=== PATIENT | male | born 1975 | race American Indian/Alaskan Native ===

== ENCOUNTER 2016-10-23 13:10 | Emergency (ER) | payer MEDICAID ==
[2016-10-23 13:32] VITALS: BP 154/87
--- NOTE | 2016-10-23 14:02 | EDM.PDOC ---
[id number]: BACK PAIN Time Seen by Provider: 10/23/16 13:35 Source of Information: Reports: Patient History Limitations: Reports: No Limitations - History of Present Illness INITIAL COMMENTS - FREE TEXT/NARRATIVE: 41-year-old male with chronic low back pain was lifting boxes this morning at 8: 00 and felt a pull in his lower back and now has increased pain. He has chronic sciatic-like discomfort in his left leg which is unchanged. No incontinence. Onset: Sudden Duration: Hour(s): (5 hours ago) Location: Reports: Back Severity: Moderate Lower Back Pain Score (Numeric/FACES): 8 - Related Data Allergies Allergy/AdvReac Type Severity Reaction Status Date / Time No Known Allergies Allergy Verified 10/23/16 13:30 Home Meds: Home Meds Acetaminophen [Tylenol Extra Strength] 500 mg PO ASDIRECTED 10/23/16 [History] Amitriptyline HCl [Amitriptyline HCl] 10 mg PO DAILY 10/23/16 [History] Escitalopram [Lexapro] 15 mg PO DAILY 10/23/16 [History] Gabapentin [Gabapentin] 1 tab PO QID 10/23/16 [History] Past Medical History Cardiovascular History: Reports: Heart Murmur, Hypertension Gastrointestinal History: Reports: Cholelithiasis Musculoskeletal History: Reports: Other (See Below) Other Musculoskeletal History: Degenerative disc disease Psychiatric History: Reports: Anxiety, Depression - Infectious Disease History Infectious Disease History: Reports: Chicken Pox - Past Surgical History GI Surgical History: Reports: Cholecystectomy Social & Family History - Tobacco Use Smoking Status *Q: Current Every Day Smoker Years of Tobacco use: 33 Packs/Tins Daily: 0.5 - Caffeine Use Caffeine Use: Reports: Coffee - Recreational Drug Use Recreational Drug Use: No ED ROS GENERAL - Review of Systems Review Of Systems: See Below Constitutional: Denies: Fever, Chills Respiratory: Denies: Shortness of Breath Cardiovascular: Denies: Chest Pain GI/Abdominal: Denies: Abdominal Pain, Nausea, Vomiting : Denies: Incontinence Skin: Reports: No Symptoms Neurological: Reports: Difficulty Walking (Some pain with walking). Denies: Paresthesia ED EXAM,LOWER BACK PAIN/INJURY - Physical Exam Exam: See Below Exam Limited By: No Limitations General Appearance: Alert, No Apparent Distress (Appears to be moving fairly well) Respiratory/Chest: No Respiratory Distress Cardiovascular: Regular Rate, Rhythm Back Exam: Paraspinal Tenderness (Patient has paraspinous tenderness and muscle tightness over the lower LS-spine bilaterally). No: CVA Tenderness (R), CVA Tenderness (L) Neurological: No Motor/Sensory Deficits Course - Vital Signs Last Recorded V/S: Last Vital Signs Temp 96.6 F 10/23/16 13:33 Pulse 93 10/23/16 13:33 Resp 16 10/23/16 13:33 BP 154/87 H 10/23/16 13:33 Pulse Ox 95 10/23/16 13:33 - Re-Assessments/Exams Free Text/Narrative Re-Assessment/Exam: 10/23/16 14:00 Patient will be provided with some Naprosyn he can take 500 mg twice daily, some Flexeril he can take up to 3 times daily and also 50 mg of prednisone daily for the next 4-6 days. He was encouraged to do some gentle stretching, stay active, and followup with Dr. Mcmahon if he is not improving satisfactorily. Departure - Departure Time of Disposition: 14:12 Disposition: Home, Self-Care 01 Condition: good Clinical Impression: Acute exacerbation of chronic low back pain - Discharge Information Instructions: Back Pain, Adult, [id number] Referrals: Rafat Mcmahon Sr, MD [Primary Care Provider] - Forms: ED Department Discharge Care Plan Goals: Take naproxen twice daily, use muscle relaxers up to 3 times daily and take 5 pills of prednisone with food each day for at least 3 days and up to [address] Mcmahon if not improving satisfactorily after 3-4 days. Increase activity as tolerated, gentle stretching may help.
== END 2016-10-23 14:12 | disposition home or self-care (01) ==
LOC: JP.ED 13:10 → EEVIPCON 13:10 → JP.ED 14:12
DX: M54.5 Low back pain (principal); G89.29 Other chronic pain; F41.9 Anxiety disorder, unspecified; F32.9 Major depressive disorder, single episode, unspecified; F17.210 Nicotine dependence, cigarettes, uncomplicated; Z79.899 Other long term (current) drug therapy; Z90.49 Acquired absence of other specified parts of digestive tract; X50.0XXA Overexertion from strenuous movement or load, initial encounter
CPT/HCPCS: 99283

== ENCOUNTER 2017-01-08 06:02 | Day surgery (SDC) | payer MEDICAID ==
[2017-01-08] MEDS ORDERED: Dextrose 5%-Lactated Ringers 1,000 ML IV SCH (06:30)
[2017-01-08] MEDS ORDERED: Lidocaine 1% with EPINEPHrine 1:100,000 50 ML MDV ONE (07:00)
[2017-01-08] MEDS ORDERED: Bupivacaine 0.5% 50 ML MDV ONE (07:00)
[2017-01-08] MEDS ORDERED: Propofol 200 MG/20 ML SDV ONE (07:15)
[2017-01-08] MEDS ORDERED: fentaNYL 100 MCG/2 ML SDV ONE (07:15)
[2017-01-08] MEDS ORDERED: ceFAZolin 2 GM in Sodium Chloride 0.9% 50 ML IV ONE (07:15)
[2017-01-08] MEDS ORDERED: Midazolam 1 MG/ML 2 ML SDV ONE (07:15)
[2017-01-08 09:43] VITALS: BP 141/87
--- NOTE | 2017-01-14 13:18 | OR ---
DATE OF PROCEDURE: 01/08/2017 PREOPERATIVE DIAGNOSIS: Probable encapsulated seroma of right anabaptist. POSTOPERATIVE DIAGNOSES: 1. Subfascial lipoma, right anabaptist. 2. Right temporal artery coursing over mass requiring its division and ligation. OPERATIVE PROCEDURES: 1. Excision of subfascial lipoma of right anabaptist (06453). 2. Division and ligation of right temporal artery (60603). ANESTHESIA: Local plus IV sedation. INDICATION FOR PROCEDURE: This is a 41-year-old male who recently had some trauma to the right forehead and anabaptist area, and felt roughly a 2.5-cm fluctuant lesion in the right anabaptist area. This was felt by ultrasound to likely be fluid, but it would at this point be encapsulated. Given this, the plan was to proceed with excision of that encapsulated tissue. Potential risks including bleeding and infection were reviewed, and the patient wishes to proceed. DETAILS OF PROCEDURE: The patient was taken to the operating room and placed in a supine position with the head turned slightly toward the left. The right anabaptist and surrounding areas were then prepped and draped, and anesthetized with 1% lidocaine mixed with Marcaine. In the lines of the skin creases, a linear incision was made and carried down through the skin and subcutaneous tissue and through the fascia of the temporal muscle at that area. During the course of the dissection, the temporal artery was encountered, and this was more or less laying directly over the course of the lesion. Given this, the temporal artery was divided and ligated to allow continued dissection onto the area of the mass effect. Over the muscular fascia and more or less the subgaleal level, a 2.5 cm lipoma was encountered as opposed to any fluid. This lipoma was well defined and was removed in its entirety using a combination of blunt and cautery dissection. Specimen was then delivered from the field. At that point, the fascia was approximated with some 4-0 Vicryl stitch, and the skin with a 4-0 Vicryl subcuticular stitch. Dressing was applied. The patient was taken to the recovery room in a satisfactory condition. There were no evident complications. Manoj Akins MD /[id number]
== END 2017-01-08 09:30 | disposition home or self-care (01) ==
LOC: JP.SDS 06:02
PROVIDERS: ATTEND Surgery
DX: D17.0 Benign lipomatous neoplasm of skin and subcutaneous tissue of head, face and neck (principal)
CPT/HCPCS: 21014; 37609; 88304; J0690; J2250; J2704; J3010; J7042; J7050

== ENCOUNTER 2017-05-26 10:55 | Emergency (ER) | payer MEDICAID ==
[2017-05-26 11:05] VITALS: BP 134/85
[2017-05-26] MEDS ORDERED: LORazepam 2 MG/ML SDV IM ONE (11:10)
--- NOTE | 2017-05-26 11:23 | EDM.PDOCBH ---
ED HPI GENERAL MEDICAL PROBLEM - General Chief Complaint: Behavioral/Psych Stated Complaint: MEDICAL [facility] Time Seen by Provider: 05/26/17 11:00 Source of Information: Reports: Patient, EMS History Limitations: Reports: Altered Mental Status, Intoxication (Actively using methamphetamine) - History of Present Illness INITIAL COMMENTS - FREE TEXT/NARRATIVE: 41-year-old male brought in by ambulance because of acute agitation, feels like he is going to because his heart is beating so hard. He's been actively doing methamphetamine for the past several days. Not suicidal. He is asking for something to calm him down, he was prescribed amphetamine as well as benzodiazepines in the past month but he said his "takes his medications". Onset: Unknown/Unsure Severity: Moderate Associated Symptoms: Reports: Confusion. Denies: Nausea/Vomiting, Shortness of Breath - Related Data Allergies Allergy/AdvReac Type Severity Reaction Status Date / Time No Known Allergies Allergy Verified 01/08/17 06:14 Home Meds: Home Meds Amitriptyline HCl [Amitriptyline HCl] 25 mg PO BEDTIME 10/23/16 [History] Escitalopram [Lexapro] 20 mg PO DAILY 10/23/16 [History] Gabapentin [Gabapentin] 800 mg PO QID 10/23/16 [History] Ibuprofen [Motrin] 600 mg PO DAILY 01/04/17 [History] ALPRAZolam [ALPRAZolam] 05/26/17 [History] Amphetamine/Dextroamphetamine [Adderall] 05/26/17 [History] Mirtazapine [Mirtazapine] 05/26/17 [History] buPROPion HCl [Wellbutrin Xl] 05/26/17 [History] Past Medical History HEENT History: Reports: None Cardiovascular History: Reports: Heart Murmur, Hypertension Respiratory History: Reports: None Gastrointestinal History: Reports: Cholelithiasis Genitourinary History: Reports: None Musculoskeletal History: Reports: Arthritis, Back Pain, Chronic, Osteoarthritis , Other (See Below) Other Musculoskeletal History: Degenerative disc disease Neurological History: Reports: Concussion, Migraines, Speech Problems Psychiatric History: Reports: Anxiety, Depression Endocrine/Metabolic History: Reports: Obesity/BMI 30+ Hematologic History: Reports: None Oncologic (Cancer) History: Reports: None Dermatologic History: Reports: None - Infectious Disease History Infectious Disease History: Reports: Chicken Pox - Past Surgical History Head Surgeries/Procedures: Reports: None HEENT Surgical History: Reports: None Cardiovascular Surgical History: Reports: None Respiratory Surgical History: Reports: None GI Surgical History: Reports: Cholecystectomy Endocrine Surgical History: Reports: None Neurological Surgical History: Reports: None Musculoskeletal Surgical History: Reports: None, Arthroscopic Knee Other Musculoskeletal Surgeries/Procedures:: bilateral knee scope Oncologic Surgical History: Reports: None Dermatological Surgical History: Reports: None Social & Family History - Family History Family Medical History: Noncontributory - Tobacco Use Smoking Status *Q: Current Every Day Smoker Years of Tobacco use: 33 Packs/Tins Daily: 0.5 Used Tobacco, but Quit: No Second Hand Smoke Exposure: Yes - Caffeine Use Caffeine Use: Reports: Coffee, Soda - Recreational Drug Use Recreational Drug Use: No ED ROS GENERAL - Review of Systems Review Of Systems: See Below Constitutional: Denies: Fever Respiratory: Denies: Shortness of Breath Cardiovascular: Reports: Palpitations. Denies: Chest Pain GI/Abdominal: Denies: Nausea, Vomiting Psychiatric: Reports: Anxiety, Mood Lability ED EXAM, BEHAVIORAL HEALTH - Physical Exam Exam: See Below Exam Limited By: Intoxication General Appearance: Alert, Anxious, Mild Distress Eye Exam: Bilateral Eye: EOMI Respiratory/Chest: No Respiratory Distress Cardiovascular: Regular Rate, Rhythm. No: Tachycardia GI/Abdominal: Non-Tender Neurological: Alert, Oriented x 3 (Patient is oriented and answering questions appropriately but very agitated and anxious) COURSE, BEHAVIORAL HEALTH COMP - Course Vital Signs: Last Vital Signs Temp 99.6 F 05/26/17 11:25 Pulse 79 05/26/17 11:25 Resp 22 H 05/26/17 11:25 BP 134/85 05/26/17 11:25 Pulse Ox 98 05/26/17 11:25 Orders, Labs, Meds: Medications Discontinued Medications Generic Name Dose Route Start Last Admin Trade Name Freq PRN Reason Stop Dose Admin Lorazepam 1 mg 05/26/17 11:10 05/26/17 11:17 Ativan IM 05/26/17 11:11 1 mg ONETIME ONE Administration Re-Assessment/Re-Exam: Discussed with the patient the inappropriateness of not only using methamphetamine but allowing his significant other to take his medications. He was given 1 mg of Ativan IM. Departure - Departure Time of Disposition: 13:37 Disposition: Home, Self-Care 01 Condition: Fair Clinical Impression: Methamphetamine abuse - Discharge Information Instructions: Stimulant Use Disorder-Methamphetamines Referrals: PCP,None [Primary Care Provider] - Forms: ED Department Discharge Care Plan Goals: Take your medications only as prescribed and avoid methamphetamine abuse in the future.
== END 2017-05-26 12:37 | disposition home or self-care (01) ==
LOC: JP.ED 10:55
DX: F15.129 Other stimulant abuse with intoxication, unspecified (principal); F32.9 Major depressive disorder, single episode, unspecified; F17.210 Nicotine dependence, cigarettes, uncomplicated; I10 Essential (primary) hypertension; Z79.899 Other long term (current) drug therapy; Z79.1 Long term (current) use of non-steroidal anti-inflammatories (NSAID)
CPT/HCPCS: 80305; 96372; 99285; J2060

== ENCOUNTER 2017-05-26 15:00 | Emergency (ER) | payer MEDICAID ==
[2017-05-26 15:23] VITALS: BP 121/85
--- NOTE | 2017-05-26 17:24 | EDM.PDOCBH ---
ED HPI GENERAL MEDICAL PROBLEM - General Chief Complaint: Behavioral/Psych Stated Complaint: EVAL Time Seen by Provider: 05/26/17 15:20 Source of Information: Reports: Patient, Police History Limitations: Reports: Altered Mental Status, Intoxication - History of Present Illness INITIAL COMMENTS - FREE TEXT/NARRATIVE: 41-year-old male who was discharged earlier today with acute methamphetamine toxicity is still displaying behavior that is dangerous, refusing to go home and walking down the street in the 25 below wind chill. Police were unable to calm him down so they brought him back in. He seems to be very focused on his 's drug use and abuse, and is having problems maintaining a coherent train of thought. - Related Data Allergies Allergy/AdvReac Type Severity Reaction Status Date / Time No Known Allergies Allergy Verified 01/08/17 06:14 Home Meds: Home Meds Amitriptyline HCl [Amitriptyline HCl] 25 mg PO BEDTIME 10/23/16 [History] Escitalopram [Lexapro] 20 mg PO DAILY 10/23/16 [History] Gabapentin [Gabapentin] 800 mg PO QID 10/23/16 [History] Ibuprofen [Motrin] 600 mg PO DAILY 01/04/17 [History] ALPRAZolam [ALPRAZolam] 05/26/17 [History] Amphetamine/Dextroamphetamine [Adderall] 05/26/17 [History] Mirtazapine [Mirtazapine] 05/26/17 [History] buPROPion HCl [Wellbutrin Xl] 05/26/17 [History] Past Medical History HEENT History: Reports: None Cardiovascular History: Reports: Heart Murmur, Hypertension Respiratory History: Reports: None Gastrointestinal History: Reports: Cholelithiasis Genitourinary History: Reports: None Musculoskeletal History: Reports: Arthritis, Back Pain, Chronic, Osteoarthritis , Other (See Below) Other Musculoskeletal History: Degenerative disc disease Neurological History: Reports: Concussion, Migraines, Speech Problems Psychiatric History: Reports: Anxiety, Depression Endocrine/Metabolic History: Reports: Obesity/BMI 30+ Hematologic History: Reports: None Oncologic (Cancer) History: Reports: None Dermatologic History: Reports: None - Infectious Disease History Infectious Disease History: Reports: Chicken Pox - Past Surgical History Head Surgeries/Procedures: Reports: None HEENT Surgical History: Reports: None Cardiovascular Surgical History: Reports: None Respiratory Surgical History: Reports: None GI Surgical History: Reports: Cholecystectomy Endocrine Surgical History: Reports: None Neurological Surgical History: Reports: None Musculoskeletal Surgical History: Reports: None, Arthroscopic Knee Other Musculoskeletal Surgeries/Procedures:: bilateral knee scope Oncologic Surgical History: Reports: None Dermatological Surgical History: Reports: None Social & Family History - Family History Family Medical History: Noncontributory - Tobacco Use Smoking Status *Q: Current Every Day Smoker Years of Tobacco use: 30 Packs/Tins Daily: 0.5 Used Tobacco, but Quit: No Second Hand Smoke Exposure: Yes - Caffeine Use Caffeine Use: Reports: Coffee, Soda - Recreational Drug Use Recreational Drug Use: No Drug Use in Last 12 Months: Yes Recreational Drug Type: Reports: Methamphetamine Recreational Drug Use Frequency: Binges ED ROS GENERAL - Review of Systems Review Of Systems: See Below Constitutional: Denies: Fever Respiratory: Denies: Shortness of Breath GI/Abdominal: Denies: Nausea, Vomiting Skin: Reports: No Symptoms Neurological: Denies: Headache ED EXAM, BEHAVIORAL HEALTH - Physical Exam Exam: See Below Exam Limited By: Intoxication General Appearance: Alert, Anxious Respiratory/Chest: No Respiratory Distress Cardiovascular: Regular Rate, Rhythm Neurological: Alert Psychiatric: Restless COURSE, BEHAVIORAL HEALTH COMP - Course Vital Signs: Last Vital Signs Temp 99.1 F 05/26/17 15:18 Pulse 112 H 05/26/17 15:18 Resp 16 05/26/17 15:18 BP 121/85 05/26/17 15:18 Pulse Ox 99 05/26/17 15:18 Orders, Labs, Meds: Laboratory Tests 05/26/17 Range/Units 16:59 Urine Opiates Screen Negative (NEGATIVE) Ur Oxycodone Screen Negative (NEGATIVE) Urine Methadone Screen Negative (NEGATIVE) Ur Propoxyphene Screen Negative (NEGATIVE) Ur Barbiturates Screen Negative (NEGATIVE) Ur Tricyclics Screen Negative (NEGATIVE) Ur Phencyclidine Scrn Negative (NEGATIVE) Ur Amphetamine Screen Positive H (NEGATIVE) U Methamphetamines Scrn Positive H (NEGATIVE) Urine MDMA Screen Positive H (NEGATIVE) U Benzodiazepines Scrn Positive H (NEGATIVE) U Cocaine Metab Screen Negative (NEGATIVE) U Marijuana (THC) Screen Negative (NEGATIVE) Re-Assessment/Re-Exam: A urine drug screen was obtained and is positive for methamphetamine. Patient will be observed until he detoxifies. Over the course of 2 hours the patient improved to the point where he could be taken home by police. His however was going to somewhere else safe until she was comfortable returning home. Departure - Departure Time of Disposition: 18:49 Disposition: Home, Self-Care 01 Condition: Fair Clinical Impression: Methamphetamine abuse - Discharge Information Instructions: Stimulant Use Disorder-Methamphetamines Referrals: PCP,None [Primary Care Provider] - Forms: ED Department Discharge Care Plan Goals: Resuming your regular medications as prescribed. Avoid abusing methamphetamine in the future.
== END 2017-05-26 18:49 | disposition home or self-care (01) ==
LOC: JP.ED 15:00
DX: F15.129 Other stimulant abuse with intoxication, unspecified (principal); I10 Essential (primary) hypertension; F32.9 Major depressive disorder, single episode, unspecified; Z79.1 Long term (current) use of non-steroidal anti-inflammatories (NSAID); Z79.899 Other long term (current) drug therapy; F17.210 Nicotine dependence, cigarettes, uncomplicated
CPT/HCPCS: 80305; 99285

== ENCOUNTER 2017-06-29 21:05 | Emergency (ER) | payer MEDICAID ==
[2017-06-29 21:37] VITALS: BP 122/89
[2017-06-29] MEDS ORDERED: Ibuprofen 600 MG Tab PO ONE (21:45)
--- NOTE | 2017-06-29 23:24 | EDM.PDOCBH ---
ED HPI GENERAL MEDICAL PROBLEM - General Chief Complaint: Drug or Alcohol Abuse Time Seen by Provider: 06/29/17 21:30 Source of Information: Reports: Patient, Police History Limitations: Reports: Altered Mental Status, Intoxication - History of Present Illness INITIAL COMMENTS - FREE TEXT/NARRATIVE: 41-year-old male, known methamphetamine abuser was walking down the street tonight when the police shined a light on him and asked what he was doing, he took off running. They pursued him and apprehended him and he was very agitated , fighting the police so they put him in the back seat of the car. He continued to be moderately violent kicking and hitting so they brought him in for sedation. About the time they got to the emergency room he calmed down and started to communicate fairly normally. His chief complaint was right foot pain. He also admits to using alcohol and methamphetamine today. He does not have any criminal charges against him. Onset: Unknown/Unsure Associated Symptoms: Reports: Confusion. Denies: Nausea/Vomiting, Shortness of Breath - Related Data Allergies Allergy/AdvReac Type Severity Reaction Status Date / Time No Known Allergies Allergy Verified 01/08/17 06:14 Home Meds: Home Meds Amitriptyline HCl [Amitriptyline HCl] 25 mg PO BEDTIME 10/23/16 [History] Escitalopram [Lexapro] 20 mg PO DAILY 10/23/16 [History] Gabapentin [Gabapentin] 800 mg PO QID 10/23/16 [History] Ibuprofen [Motrin] 600 mg PO DAILY 01/04/17 [History] ALPRAZolam [ALPRAZolam] 05/26/17 [History] Amphetamine/Dextroamphetamine [Adderall] 05/26/17 [History] Mirtazapine [Mirtazapine] 05/26/17 [History] buPROPion HCl [Wellbutrin Xl] 05/26/17 [History] Past Medical History HEENT History: Reports: None Cardiovascular History: Reports: Heart Murmur, Hypertension Respiratory History: Reports: None Gastrointestinal History: Reports: Cholelithiasis Genitourinary History: Reports: None Musculoskeletal History: Reports: Arthritis, Back Pain, Chronic, Osteoarthritis , Other (See Below) Other Musculoskeletal History: Degenerative disc disease Neurological History: Reports: Concussion, Migraines, Speech Problems Psychiatric History: Reports: Anxiety, Depression Endocrine/Metabolic History: Reports: Obesity/BMI 30+ Hematologic History: Reports: None Oncologic (Cancer) History: Reports: None Dermatologic History: Reports: None - Infectious Disease History Infectious Disease History: Reports: Chicken Pox - Past Surgical History Head Surgeries/Procedures: Reports: None HEENT Surgical History: Reports: None Cardiovascular Surgical History: Reports: None Respiratory Surgical History: Reports: None GI Surgical History: Reports: Cholecystectomy Endocrine Surgical History: Reports: None Neurological Surgical History: Reports: None Musculoskeletal Surgical History: Reports: None, Arthroscopic Knee Other Musculoskeletal Surgeries/Procedures:: bilateral knee scope Oncologic Surgical History: Reports: None Dermatological Surgical History: Reports: None Social & Family History - Family History Family Medical History: Noncontributory - Tobacco Use Smoking Status *Q: Unknown Ever Smoked Years of Tobacco use: 30 Packs/Tins Daily: 0.5 Used Tobacco, but Quit: No Second Hand Smoke Exposure: Yes - Caffeine Use Caffeine Use: Reports: Coffee, Soda - Recreational Drug Use Recreational Drug Use: Yes Drug Use in Last 12 Months: Yes Recreational Drug Type: Reports: Methamphetamine Recreational Drug Use Frequency: Binges ED ROS GENERAL - Review of Systems Review Of Systems: ROS reveals no pertinent complaints other than HPI. ED EXAM, BEHAVIORAL HEALTH - Physical Exam Exam: See Below Exam Limited By: Intoxication General Appearance: Alert, No Apparent Distress Eye Exam: Bilateral Eye: EOMI Respiratory/Chest: No Respiratory Distress, Lungs Clear Cardiovascular: Regular Rate, Rhythm Extremities: Other (Despite the right foot pain, there was no physical evidence of injury such as swelling, bruising or deformity. He reacted to intense tenderness to palpation of the top of the foot) Neurological: Alert COURSE, BEHAVIORAL HEALTH COMP - Course Vital Signs: Last Vital Signs Temp 99.5 F 06/29/17 21:30 Pulse 91 06/29/17 21:30 Resp 15 06/29/17 21:30 BP 122/89 06/29/17 21:30 Pulse Ox 99 06/29/17 21:30 Orders, Labs, Meds: Active Orders 24 hr Category Date Time Status Foot 2V Rt [CR] Stat Exams 06/29/17 21:28 Taken Foot wo Cont Rt [CT] Stat Exams 06/29/17 22:15 Taken Laboratory Tests 06/29/17 Range/Units 21:28 Ethyl Alcohol 32 mg/dL Medications Discontinued Medications Generic Name Dose Route Start Last Admin Trade Name Freq PRN Reason Stop Dose Admin Ibuprofen 600 mg 06/29/17 21:45 06/29/17 21:52 Motrin PO 06/29/17 21:46 600 mg ONETIME ONE Administration Re-Assessment/Re-Exam: Patient was given 600 mg of ibuprofen, a foot x-ray was done which looked normal. We then placed an Marcial wrap on the foot which she took off because it was too painful. He continued to complain of intense foot pain, so a CT scan of the foot was done and that was also negative. Blood alcohol came back 0.03. He said he "needed an intervention". [facility] does have a bed available and this was offered to the patient Patient declined detox. He stabilized and was cooperative, answering questions appropriately and wanted to go home. Departure - Departure Time of Disposition: 03:21 Disposition: Home, Self-Care 01 Condition: Good Clinical Impression: Methamphetamine abuse - Discharge Information Instructions: Stimulant Use Disorder-Methamphetamines Referrals: PCP,None [Primary Care Provider] - Forms: ED Department Discharge Care Plan Goals: Avoid using methamphetamine in the future, it will kill you. Seek treatment if needed. - My Orders Last 24 Hours: My Active Orders 06/29/17 21:28 Foot 2V Rt [CR] Stat 06/29/17 22:15 Foot wo Cont Rt [CT] Stat - Assessment/Plan Last 24 Hours: My Active Orders 06/29/17 21:28 Foot 2V Rt [CR] Stat 06/29/17 22:15 Foot wo Cont Rt [CT] Stat
--- NOTE | 2017-07-01 10:49 | CR ---
No fracture or dislocation.
== END 2017-06-30 03:21 | disposition home or self-care (01) ==
LOC: JP.ED 21:05
DX: F15.129 Other stimulant abuse with intoxication, unspecified (principal); I10 Essential (primary) hypertension; F32.9 Major depressive disorder, single episode, unspecified; Z77.22 Contact with and (suspected) exposure to environmental tobacco smoke (acute) (chronic); Z79.899 Other long term (current) drug therapy
CPT/HCPCS: 36415; 73620-26-RT; 73620-RT; 73700-RT; 99284; A9270-GY; G0480